=== PATIENT | male | born 1970 ===

== ENCOUNTER 2017-03-18 21:26 | Emergency (ER) | payer BC | END 2017-03-18 22:57 | disposition left against medical advice (07) | LOC: ERS 21:26 | DX: Z53.21 Procedure and treatment not carried out due to patient leaving prior to being seen by health care provider (principal) ==

== ENCOUNTER 2018-12-07 17:00 | Outpatient (CLI) | payer BC | END 2018-12-07 17:01 | disposition home or self-care (01) | LOC: SLEEPLAB 17:00 | PROVIDERS: ATTEND Internal Medicine | DX: G47.33 Obstructive sleep apnea (adult) (pediatric) (principal); R53.83 Other fatigue; R09.89 Other specified symptoms and signs involving the circulatory and respiratory systems; R51 Headache; K21.9 Gastro-esophageal reflux disease without esophagitis; R06.83 Snoring; R35.1 Nocturia; G47.00 Insomnia, unspecified; E66.9 Obesity, unspecified; Z68.31 Body mass index [BMI] 31.0-31.9, adult | CPT/HCPCS: 95806 ==